=== PATIENT | male | born 1995 | race Caucasian/White ===

== ENCOUNTER 2023-10-13 01:26 | Outpatient (CLI) | payer SELFPAY | END 2023-10-13 01:27 | disposition home or self-care (01) | LOC: AMB 11-20 14:25 | PROVIDERS: Visit Provider Internal Medicine | DX: T14.90XA Injury, unspecified, initial encounter (principal); V47.0XXA Car driver injured in collision with fixed or stationary object in nontraffic accident, initial encounter; Y92.410 Unspecified street and highway as the place of occurrence of the external cause | CPT/HCPCS: A0998 ==